=== PATIENT | male | born 1960 | race Caucasian/White ===

== ENCOUNTER 2018-04-10 23:54 | Emergency (ER) | payer BC ==
[~2018-04-10] VITALS: Ht 162.6 cm; Wt 47.7 kg
[~2018-04-10 23:54] MED LIST: AMOXICILLIN 50500 MG PO; NO HOME MEDICATIONS; PERCOCET 325 MG1 TA2 PO; ZOFRAN ODT4 MG PO
[2018-04-11] VITALS: TEMP 97.8
[2018-04-11 00:10] LABS: BASO % 0.6 % (0.0-2.0); EOS # 0.4 (0.0-0.7); EOS % 5.2 % (0-4.0); GRAN # 4.7 (1.4-6.5); GRAN % 67.8 % (42.2-75.2); HEMATOCRIT 48.6 % (42.0-52.0); HEMOGLOBIN 16.4 g/dl (13.5-18.0); LYMPH # 1.4 (1.2-3.4); LYMPH % 20.3 % (20.0-51.0); MEAN CELL VOLUME 95 fl (80.0-100.0); MEAN CORPUSCULAR HEMOGLOBIN 32 pg (27.0-31.0); MEAN CORPUSCULAR HGB CONC 34 g/dl (33.0-37.0); MEAN PLATELET VOLUME 10.8 fl (7.4-10.4); MONO # 0.4 (0.1-0.6); PLATELET COUNT 209 K/mm3 (130-400); RED BLOOD COUNT 5.11 M/mm3 (4.20-5.60); REDCELL DISTRIBUTION WIDTH-CV 12.5 % (11.5-14.5)
[2018-04-11] MEDS ORDERED: NAPROSYN500 MG PO (00:11)
[2018-04-11 00:22] LABS: ALANINE AMINOTRANSFERASE 79 U/L (21-72); ALKALINE PHOSPHATASE 79 U/L (50-136); ANION GAP 5 mmol/L (7-16); AST,SGOT 53 U/L (15-37); BILIRUBIN,TOTAL 0.4 mg/dL (0.0-1.0); BLOOD UREA NITROGEN 15 mg/dL (9-20); CALCIUM 8.9 mg/dL (8.4-10.2); CARBON DIOXIDE 28 mmol/L (22-30); CHLORIDE 110 mmol/L (98-107); CREATININE, serum 0.85 mg/dL (0.66-1.25); GLUCOSE 106 mg/dL (74-106); POTASSIUM 3.9 mmol/L (3.4-5.0); SODIUM 143 mmol/L (137-145); TOTAL PROTEIN 6.9 gm/dL (6.4-8.2)
[2018-04-11 00:34] LABS: TROPONIN-I < 0.012 ng/mL (0.000-0.034)
[2018-04-11] MEDS ORDERED: TOPROL XL 25MG25 MG PO (04:14)
[2018-04-11 04:40] VITALS: BP 116/74; PULSE 61
== END 2018-04-11 04:41 | disposition home or self-care (01) ==
LOC: COL.ER 23:54
PROVIDERS: Emergency Medicine
DX: R07.89 Other chest pain (principal); F17.210 Nicotine dependence, cigarettes, uncomplicated; Z87.442 Personal history of urinary calculi

== ENCOUNTER 2018-05-24 09:16 | Day surgery (SDC) | payer BC ==
[~2018-05-24] VITALS: Ht 162.6 cm; Wt 50.2 kg
[2018-05-24] VITALS (9 sets, daily range): BP systolic 87–121; BP diastolic 54–72; PULSE 55–66
[~2018-05-24 09:16] MED LIST changes: +NAPROSYN500 MG PO; +TOPROL XL 25MG25 MG PO
[2018-05-24] MEDS ORDERED: ASPIRIN 81M81 MG/TA2 PO (09:47)
[2018-05-24] MEDS ORDERED: NICORETTE4 M1 PO (09:48)
[2018-05-24 10:18] LABS: HEMATOCRIT 47.8 % (42.0-52.0); HEMOGLOBIN 16.3 g/dl (13.5-18.0); MEAN CELL VOLUME 94 fl (80.0-100.0); MEAN CORPUSCULAR HEMOGLOBIN 32 pg (27.0-31.0); MEAN CORPUSCULAR HGB CONC 34 g/dl (33.0-37.0); MEAN PLATELET VOLUME 10.6 fl (7.4-10.4); PLATELET COUNT 177 K/mm3 (130-400); RED BLOOD COUNT 5.09 M/mm3 (4.20-5.60)
[2018-05-24 10:21] LABS: INR 1.3 (0.8-3.0); PROTHROMBIN TIME 14.4 SECONDS (9.7-12.8)
[2018-05-24 10:26] LABS: CALCIUM 9.2 mg/dL (8.4-10.2); CHOLESTEROL RISK RATIO 4.5; CREATININE, serum 0.81 mg/dL (0.66-1.25); MAGNESIUM 1.9 mg/dL (1.6-2.3); POTASSIUM 4.1 mmol/L (3.4-5.0)
--- NOTE | 2018-05-24 11:21 | NUR ---
[facility]ENS TEST POSITIVE. ALL MEDS GIVEN WITH VERBAL ORDER FROM MD. SEE MERGE FOR ADMIN TIME.
--- NOTE | 2018-05-24 12:20 | NUR ---
PT BACK TO ROOM 11 POST CARDIAC CATH.VSS AND [id number].RIGHT RADIAL SITE IS C/D/I WITH TR BAND IN PLACE.PULSES EASILY PALPABLE AND SITE SOFT ON PALPATION.PT DENIES PAIN AT THIS TIME AND IS COMFORTABLY RESTING IN BED.
[2018-05-24] MEDS ORDERED: LIPITOR20 MG PO (12:33)
--- NOTE | 2018-05-24 15:00 | NUR ---
Pt VSS and up resting in bed post cardiac cath. Radial site remained c/d/i and soft on palpation. Pt denies pain at the site. PT tolerated food and fluids by mouth without difficulty. 12cc of air removed from TR band with no bleeding or change in site. 20g IV removed from LAC and discharge instructions reviewed and signed. 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
== END 2018-05-24 15:00 | disposition home or self-care (01) ==
LOC: COL.CAR 09:16
PROVIDERS: Internal Medicine Cardiovascular Disease
DX: I25.118 Atherosclerotic heart disease of native coronary artery with other forms of angina pectoris (principal); I10 Essential (primary) hypertension; E78.5 Hyperlipidemia, unspecified; K21.9 Gastro-esophageal reflux disease without esophagitis; F17.210 Nicotine dependence, cigarettes, uncomplicated; Z88.8 Allergy status to other drugs, medicaments and biological substances
CPT/HCPCS: C1769; J1200; J1644; J2250; J3010; Q9967